=== PATIENT | female | born 1975 | race Caucasian/White ===

== ENCOUNTER 2024-08-15 00:25 | Emergency (ER) | payer MEDICAID ==
[~2024-08-15] VITALS: Ht 157.5 cm; Wt 100.0 kg
[2024-08-15 00:52] VITALS: TEMP 98.4; O2SAT 99
[2024-08-15 02:04] LABS: BASOPHILS % 0.8 % (0.0-2.0); EOSINOPHILS % 5.2 % (0.0-5.0); HEMATOCRIT. 38.7 % (36.0-48.0); HEMOGLOBIN. 12.6 g/dL (12.0-16.0); LYMPHOCYTES % 29.7 % (20.0-50.0); MEAN CORPUSCULAR HEMOGLOBIN 28.3 pg (28.0-32.0); MEAN CORPUSCULAR HGB CONC 32.6 g/dL (31.0-37.0); MEAN CORPUSCULAR VOLUME 86.7 fL (81.0-99.0); MEAN PLATELET VOLUME 8.6 fl (7.4-10.4); MONOCYTES % 7.8 % (2.0-8.0); NEUTROPHILS % 56.5 % (40.0-76.0); PLATELET 345 x1000/uL (130-400); RED BLOOD CELL COUNT 4.47 mill/uL (4.2-5.4); RED CELL DISTRIBUTION WIDTH 14.4 % (11.6-14.6); WHITE BLOOD COUNT 8.7 x1000/uL (4.5-11.0)
[2024-08-15 02:23] LABS: CARBON DIOXIDE 29 mEq/L (21-32); CHLORIDE 106 mEq/L (98-107); POTASSIUM 3.6 mEq/L (3.5-5.1); SODIUM 142 mEq/L (136-145)
[2024-08-15 02:24] LABS: CLARITY URINE CLEAR (CLEAR); COLOR URINE YELLOW (YELLOW); GLUCOSE URINE NEGATIVE (NEGATIVE); KETONES URINE TRACE (NEGATIVE); LEUKOCYTE ESTERASE URINE NEGATIVE (NEGATIVE); NITRITE URINE NEGATIVE (NEGATIVE); OCCULT BLOOD URINE 1+ (NEGATIVE); PH URINE 5.5 (4.5-8.0); PROTEIN URINE TRACE (NEGATIVE)
[2024-08-15 02:28] LABS: CREATININE 0.8 mg/dL (0.6-1.0); GLUCOSE 93 mg/dL (70-105)
[2024-08-15 02:29] LABS: UREA NITROGEN BLOOD 15 mg/dL (9-23)
[2024-08-15 02:30] LABS: ALANINE AMINOTRANSFERASE 17 IU/L (10-49); ASPARTATE AMINOTRANSFERASE 17 IU/L (<34)
[2024-08-15 02:31] LABS: ALBUMIN 4.2 g/dL (3.2-4.8); BILIRUBIN TOTAL 0.2 mg/dL (0.1-1.0)
[2024-08-15 02:52] LABS: SQUAMOUS EPITHELIAL CELL URINE FEW /lpf (RARE/1+)
[2024-08-15 02:55] LABS: RBC URINE 0-2 /hpf (0-2)
[2024-08-15 02:56] LABS: BACTERIA URINE NONE SEEN; CALCIUM OXALATE CRYSTALS URINE 1+ /lpf
[2024-08-15] MEDS ORDERED: DOXY100C5 MT (03:04)
[2024-08-15] MEDS: CEFTRIAXONE SODIUM 500MG VIAL IM ONE (04:05)
[2024-08-15 04:56] LABS: UCG KIT LOT# 873622
[2024-08-15 04:59] LABS: UCG SCREEN NEGATIVE
[2024-08-15 05:58] VITALS: BP 142/84; PULSE 80; RESP 18
[2024-08-15] MEDS: IBUPROFEN 400MG TABLET PO ONE (05:58)
== END 2024-08-15 05:59 | disposition home or self-care (01) ==
LOC: ER 00:25
DX: N39.41 Urge incontinence (principal)
CPT/HCPCS: 99285; 76770; 80053; 81003; 81025; 85025; 36415; 96372; J0696

== ENCOUNTER 2024-12-27 14:44 | Emergency (ER) | payer MEDICAID, OTHER ==
[~2024-12-27] VITALS: Ht 165.1 cm; Wt 100.0 kg
[~2024-12-27 14:44] MED LIST: DOXY100C5 MT
[2024-12-27 14:50] VITALS: O2SAT 96
[2024-12-27] MEDS: METHYLPREDNISOLONE SOD SUCC 125MG/2ML (ACT-O-VIAL) IV ONE (15:24)
[2024-12-27 15:36] LABS: BASOPHILS % 1.2 % (0.0-2.0); EOSINOPHILS % 1.8 % (0.0-5.0); HEMATOCRIT. 40.2 % (36.0-48.0); HEMOGLOBIN. 13.3 g/dL (12.0-16.0); LYMPHOCYTES % 24.5 % (20.0-50.0); MEAN CORPUSCULAR HEMOGLOBIN 28.1 pg (28.0-32.0); MEAN CORPUSCULAR HGB CONC 33.1 g/dL (31.0-37.0); MEAN PLATELET VOLUME 8.4 fl (7.4-10.4); NEUTROPHILS % 64.5 % (40.0-76.0); PLATELET 377 x1000/uL (130-400); RED BLOOD CELL COUNT 4.73 mill/uL (4.2-5.4); RED CELL DISTRIBUTION WIDTH 15.2 % (11.6-14.6); WHITE BLOOD COUNT 9.5 x1000/uL (4.5-11.0)
[2024-12-27 15:49] LABS: INR 0.9
[2024-12-27 15:54] LABS: CARBON DIOXIDE 31 mEq/L (21-32); CHLORIDE 99 mEq/L (98-107); POTASSIUM 3.8 mEq/L (3.5-5.1); SODIUM 139 mEq/L (136-145)
[2024-12-27 15:59] LABS: CREATININE 0.6 mg/dL (0.6-1.0)
[2024-12-27 16:00] LABS: GLUCOSE 125 mg/dL (70-105); UREA NITROGEN BLOOD 8 mg/dL (9-23)
[2024-12-27 16:01] LABS: ALANINE AMINOTRANSFERASE 15 IU/L (10-49); ASPARTATE AMINOTRANSFERASE 15 IU/L (<34)
[2024-12-27 16:02] LABS: ALBUMIN 4.1 g/dL (3.2-4.8); BILIRUBIN DIRECT < 0.1 mg/dL (<=3.0); BILIRUBIN TOTAL 0.3 mg/dL (0.1-1.0); PROTEIN TOTAL 7.1 g/dL (6.0-8.3)
[2024-12-27 16:07] LABS: HCG SCREEN NEGATIVE
[2024-12-27] MEDS ORDERED: P50 MT (17:41)
[2024-12-27] MEDS ORDERED: TRAM50TA3 MT (17:42)
[2024-12-27 18:10] VITALS: BP 149/88; PULSE 94; RESP 16; TEMP 37; O2SAT 100
[2024-12-27] MEDS ORDERED: IOHEXOL-350 100 ML BOTTLE ONE (23:19)
== END 2024-12-27 18:15 | disposition home or self-care (01) ==
LOC: ER 14:44
DX: K92.2 Gastrointestinal hemorrhage, unspecified (principal); K90.0 Celiac disease; R03.0 Elevated blood-pressure reading, without diagnosis of hypertension; Z88.0 Allergy status to penicillin; Z90.49 Acquired absence of other specified parts of digestive tract
CPT/HCPCS: 80076; 80048; 84703; 83690; 85025; 85610; 86850; 86900; 86901; 36415; 74174; 96374; 99285; Q9967; J2919; Z7610 ×3